=== PATIENT | female | born 1935 | race American Indian/Alaskan Native ===

== ENCOUNTER 2019-10-30 08:12 | Outpatient (CLI) | payer MEDICARE ==
[2019-10-30] MEDS ORDERED: LIDOCAINE (4%) 40 MG/ML TOPICAL SOLN 50 ML BOTTLE TP ONE (08:23)
== END 2019-10-30 08:13 | disposition home or self-care (01) ==
LOC: WOUND 08:12
PROVIDERS: ATTEND Surgery
DX: L89.310 Pressure ulcer of right buttock, unstageable (principal); I10 Essential (primary) hypertension; J44.9 Chronic obstructive pulmonary disease, unspecified; M32.9 Systemic lupus erythematosus, unspecified; Z85.038 Personal history of other malignant neoplasm of large intestine
CPT/HCPCS: 99205; G0463

== ENCOUNTER 2019-11-15 08:42 | Outpatient (CLI) | payer MEDICARE ==
[2019-11-15] MEDS ORDERED: LIDOCAINE (4%) 40 MG/ML TOPICAL SOLN 50 ML BOTTLE TP ONE (09:30)
== END 2019-11-15 08:43 | disposition home or self-care (01) ==
LOC: WOUND 08:42
PROVIDERS: ATTEND Surgery
DX: L89.310 Pressure ulcer of right buttock, unstageable (principal); L97.112 Non-pressure chronic ulcer of right thigh with fat layer exposed; I10 Essential (primary) hypertension; J44.9 Chronic obstructive pulmonary disease, unspecified; M32.9 Systemic lupus erythematosus, unspecified; Z85.038 Personal history of other malignant neoplasm of large intestine

== ENCOUNTER 2019-12-06 10:56 | Outpatient (CLI) | payer MEDICARE ==
[2019-12-06] MEDS ORDERED: LIDOCAINE (4%) 40 MG/ML TOPICAL SOLN 50 ML BOTTLE TP ONE (11:03)
== END 2019-12-06 10:57 | disposition home or self-care (01) ==
LOC: WOUND 10:56
PROVIDERS: ATTEND Surgery
DX: L89.310 Pressure ulcer of right buttock, unstageable (principal); L97.112 Non-pressure chronic ulcer of right thigh with fat layer exposed; I10 Essential (primary) hypertension; J44.9 Chronic obstructive pulmonary disease, unspecified; M32.9 Systemic lupus erythematosus, unspecified; Z85.038 Personal history of other malignant neoplasm of large intestine